=== PATIENT | male | born 1995 | race Caucasian/White ===

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

== ENCOUNTER → 2021-08-30 | Outpatient (CLI) | payer BC | LOC: COL.RAD 07:39 | DX: I77.810 Thoracic aortic ectasia (principal); Y09 Assault by unspecified means | CPT/HCPCS: Q9967 ==

== ENCOUNTER → 2021-10-30 | Outpatient (CLI) | payer BC | LOC: COL.RAD 10-23 13:30 | DX: I26.93 Single subsegmental thrombotic pulmonary embolism without acute cor pulmonale (principal) | CPT/HCPCS: Q9967 ==